=== PATIENT | male | born 1930 | race Caucasian/White ===

== ENCOUNTER 2019-05-06 13:02 | Day surgery (SDC) | payer MEDICARE, OTHER ==
[2019-05-05 17:27] VITALS: BMI 31.1
[~2019-05-06] VITALS: Ht 165.1 cm; Wt 80.8 kg
[2019-05-06] VITALS (8 sets, daily range): BP systolic 109–158; BP diastolic 59–89; PULSE 69–99; RESP 13–29; Ht 165.1 cm; Wt 80.8 kg
[~2019-05-06 13:02] MED LIST: CEFAZOLIN 1 GM/50 ML (PMX) 50 ML IVPB SCH; IRBE150T21 PO
[2019-05-06] MEDS ORDERED: LACTATED RINGER'S 1,000 ML IV SCH (14:00)
[2019-05-06] MEDS ORDERED: EPHEDrine 25 MG/5 ML SYG IV PRN (15:30)
[2019-05-06] MEDS ORDERED: ONDANSETRON 4 MG INJ IV PRN (15:30)
[2019-05-06] MEDS ORDERED: ALBUTEROL 0.083% (NEB) 2.5 MG/3 ML AMP HHN PRN (15:30)
[2019-05-06] MEDS ORDERED: morphine 2 MG INJ IV PRN (15:30)
[2019-05-06] MEDS ORDERED: LABETALOL HCL 20MG INJ IV PRN (15:30)
[2019-05-06] MEDS ORDERED: KETOROLAC 15 MG INJ IV PRN (15:30)
[2019-05-06] MEDS ORDERED: FENTAnyl 50 MCG/ML VIAL IV PRN (15:30)
[2019-05-06] MEDS ORDERED: ATROPINE 1 MG/10 ML SYRINGE IV PRN (15:30)
[2019-05-06] MEDS ORDERED: LEVALBUTEROL (NEB) 0.63 MG/3 ML AMP HHN PRN (15:30)
[2019-05-06] MEDS ORDERED: DIPHENHYDRAMINE 50 MG INJ IV PRN (15:30)
[2019-05-06] MEDS ORDERED: HYDROmorphONE 1 MG/5 ML IV SYRINGE IV PRN (15:30)
[2019-05-06] MEDS ORDERED: hydrALAzine 20 MG INJ IV PRN (15:30)
[2019-05-06] MEDS ORDERED: CEFAZOLIN 1 GM INJ ONE (16:00)
[2019-05-06] MEDS ORDERED: PROPOFOL 200 MG INJ ONE (16:00)
[2019-05-06] MEDS ORDERED: LIDOCAINE 1% (MPF) 30 ML INJ ONE (16:26)
[2019-05-06] MEDS ORDERED: FENTAnyl 50 MCG/ML VIAL ONE (16:32)
[2019-05-06] MEDS ORDERED: LIDOCAINE 2% (SDV) 5 ML INJ ONE (16:32)
[2019-05-06] MEDS ORDERED: BUPIVACAINE 0.5% (SDV) 30 ML INJ ONE (16:46)
== END 2019-05-06 18:20 | disposition home or self-care (01) ==
LOC: SDS 13:02
PROVIDERS: ATTEND Podiatrist Foot & Ankle Surgery
DX: L97.319 Non-pressure chronic ulcer of right ankle with unspecified severity (principal); E03.9 Hypothyroidism, unspecified
CPT/HCPCS: 11043; 11046; 87070; 87075; 87102; J0690; J3010